=== PATIENT | female | born 1955 | race Caucasian/White ===

== ENCOUNTER 2018-05-25 20:45 | Emergency (ER) | payer MEDICAID ==
[~2018-05-25] VITALS: Ht 162.6 cm; Wt 85.0 kg
[2018-05-25] MEDS ORDERED: normal saline 1000ML IV soln IVB ONE (22:40)
[2018-05-25 23:02] LABS: MEAN CORPUSCULAR HEMOGLOBIN 27.8 PG (27.0-31.0); MEAN CORPUSCULAR HGB CONC 32.2 % (33.0-36.5); MEAN CORPUSCULAR VOLUME 86.3 FL (78-98); MEAN PLATELET VOLUME 6.6 FL (7.4-10.4); PLATELET COUNT 449 X10'3 (140-440); RED BLOOD COUNT 3.24 X10'6 (4.20-5.60); WHITE BLOOD COUNT 13.2 X10'3 (4.5-11.0)
[2018-05-25 23:15] LABS: ALANINE AMINOTRANSFERASE 21 U/L (12-78); ALBUMIN 2.7 G/DL (3.4-5.0); ALBUMIN/GLOBULIN RATIO 0.6 (1.1-1.5); ALKALINE PHOSPHATASE 115 IU/L (46-116); ANION GAP 14 (8-16); ASPARTATE AMINO TRANSFERASE 32 U/L (10-37); BILIRUBIN,TOTAL 0.4 MG/DL (0.1-1.0); BLOOD UREA NITROGEN 13 MG/DL (7-18); BUN/CREATININE RATIO 12.7 (6.6-38.0); CALCIUM 7.5 MG/DL (8.5-10.1); CHLORIDE 100 MMOL/L (99-107); CREATININE 1.02 MG/DL (0.40-0.90); ETHANOL 0.285 GM/DL (0.0-0.010); GLUCOSE 127 MG/DL (70-104); MAGNESIUM 1.4 MG/DL (1.5-2.4); POTASSIUM 3.8 MMOL/L (3.5-5.1); PROTHROMBIN TIME 10.4 SECONDS (9.0-12.0); SODIUM 140 MMOL/L (135-145); TOTAL CARBON DIOXIDE 25.6 MMOL/L (24-32); TOTAL PROTEIN 6.9 G/DL (6.4-8.2); eGFR 55 ML/MIN
[2018-05-25 23:31] LABS: TOTAL CELLS COUNTED 100
[2018-05-25 23:32] LABS: ANISOCYTOSIS 3+; PLATELET ESTIMATE NORMAL
[2018-05-25 23:33] LABS: SCHISTOCYTES 1+; TARGET CELLS 2+
[2018-05-26 00:46] VITALS: BP 134/83
== END 2018-05-26 00:52 | disposition home or self-care (01) ==
LOC: ER 20:46
DX: S92.502A Displaced unspecified fracture of left lesser toe(s), initial encounter for closed fracture (principal); F10.129 Alcohol abuse with intoxication, unspecified; I10 Essential (primary) hypertension; Z87.891 Personal history of nicotine dependence; Z56.0 Unemployment, unspecified; Z60.2 Problems related to living alone; W01.0XXA Fall on same level from slipping, tripping and stumbling without subsequent striking against object, initial encounter; Y93.89 Activity, other specified; Y92.89 Other specified places as the place of occurrence of the external cause; Y99.8 Other external cause status
CPT/HCPCS: 36415; 71045; 73630; 80053; 80320; 82140; 82948; 83735; 85025; 85610; 93005; 99285

== ENCOUNTER 2018-06-15 10:09 | Outpatient (CLI) | payer MEDICAID ==
[2018-06-15 10:38] VITALS: BP 111/72
== END 2018-06-15 11:00 | disposition home or self-care (01) ==
LOC: ORTHO 10:09
PROVIDERS: ATTEND Nurse Practitioner Family
DX: S92.415D Nondisplaced fracture of proximal phalanx of left great toe, subsequent encounter for fracture with routine healing (principal); Z56.0 Unemployment, unspecified; Z60.2 Problems related to living alone; Z72.89 Other problems related to lifestyle; X58.XXXD Exposure to other specified factors, subsequent encounter
CPT/HCPCS: 73660; 99213

== ENCOUNTER 2022-12-23 13:35 | Emergency (ER) | payer MEDICARE, MEDICAID ==
[~2022-12-23] VITALS: Ht 162.6 cm; Wt 90.9 kg
[~2022-12-23 13:35] MED LIST: GUAI400T92 PO; NIRM1TAB PO; ONDA4TAB12 PO
[2022-12-23 13:47] VITALS: BP 149/77
[2022-12-23] MEDS ORDERED: dexamethasone sod phosphate 10mg/ml inj PO STA (14:30)
[2022-12-23] MEDS ORDERED: BUDE180A INH ×2 (14:39)
[2022-12-23] MEDS ORDERED: ALBU6.7H14 INH ×2 (14:39)
[2022-12-23] MEDS ORDERED: DEXA6TAB PO ×2 (14:39)
[2022-12-23] MEDS ORDERED: AMOX-117 PO ×2 (15:04)
[2022-12-24] MEDS ORDERED: ALBU18HF2 INH (17:33)
[2022-12-24] MEDS ORDERED: DEXA6TAB PO (17:34)
[2022-12-24] MEDS ORDERED: HYDR-3964 PO (17:35)
[2022-12-24] MEDS ORDERED: DOXE25CA3 PO (17:36)
[2022-12-24] MEDS ORDERED: DULO20CA18 PO (17:36)
[2022-12-24] MEDS ORDERED: GABA300C PO (17:37)
[2022-12-24] MEDS ORDERED: DICL100G30 TOP (17:38)
[2022-12-24] MEDS ORDERED: BUPR300T86 PO (17:39)
[2022-12-24] MEDS ORDERED: LISI20TA28 PO (17:40)
[2022-12-24] MEDS ORDERED: IBUP-860 PO (17:41)
[2022-12-24] MEDS ORDERED: ASPI-611 PO (17:43)
[2022-12-26] MEDS ORDERED: LEVO750T68 PO (09:43)
== END 2022-12-23 15:19 | disposition home or self-care (01) ==
LOC: ER 13:36
DX: U07.1 COVID-19 (principal); J40 Bronchitis, not specified as acute or chronic; I10 Essential (primary) hypertension; F41.9 Anxiety disorder, unspecified; Z98.890 Other specified postprocedural states; Z72.89 Other problems related to lifestyle; Z60.2 Problems related to living alone; Z56.0 Unemployment, unspecified; Z79.899 Other long term (current) drug therapy
CPT/HCPCS: 71045; J1100